=== PATIENT | female | born 1985 | race American Indian/Alaskan Native ===

== ENCOUNTER 2020-05-21 05:55 | Outpatient (CLI) | payer OTHER ==
[2020-05-21 06:14] VITALS: BP 138/82
== END 2020-05-21 07:10 | disposition home or self-care (01) ==
LOC: TRG 05:55 → APU 06:04 → TRG 07:10
PROVIDERS: ATTEND Obstetrics & Gynecology
DX: O62.4 Hypertonic, incoordinate, and prolonged uterine contractions (principal); Z3A.39 39 weeks gestation of pregnancy
CPT/HCPCS: 59025; Q0177

== ENCOUNTER 2020-05-21 21:10 | Outpatient (CLI) | payer OTHER ==
[2020-05-21 21:57] VITALS: BP 129/75
== END 2020-05-22 00:55 | disposition home or self-care (01) ==
LOC: TRG 21:10 → APU 21:13 → TRG 05-22 00:55
PROVIDERS: ATTEND Obstetrics & Gynecology
DX: O62.4 Hypertonic, incoordinate, and prolonged uterine contractions (principal); Z3A.39 39 weeks gestation of pregnancy
CPT/HCPCS: 59025; Q0177

== ENCOUNTER 2020-05-22 11:18 | Inpatient (IN) | payer OTHER ==
[2020-05-22] MEDS ORDERED: LACTATED RINGERS 1,000 ML ONE (11:46)
[2020-05-22] MEDS ORDERED: AMPICILLIN/NS 2 GM/100 ML 2 GM/100 ML BAG IV ONE ×2 (11:47→11:51)
[2020-05-22] MEDS ORDERED: LIDOCAINE (2%) 20 MG/1 ML VIAL 20 ML MDV INFILTRATI ONE ×2 (11:50→13:00)
[2020-05-22] MEDS ORDERED: MINERAL OIL 30 ML ORAL LIQD PO PRN ×2 (11:50→11:51)
[2020-05-22] MEDS ORDERED: ACETAMINOPHEN 325 MG TAB PO PRN (11:50)
[2020-05-22] MEDS ORDERED: BUTORPHANOL 2 MG/1 ML INJ IV PRN ×2 (11:50)
[2020-05-22] MEDS ORDERED: TERBUTALINE 1 MG/1 ML INJ SUB-Q PRN ×2 (11:50→11:51)
[2020-05-22] MEDS ORDERED: ePHEDrine SULFATE 50 MG/1 ML INJ IV PRN ×2 (11:50→11:51)
[2020-05-22] MEDS ORDERED: ONDANSETRON 4 MG/2 ML INJ IV PRN ×2 (11:50→13:59)
[2020-05-22] MEDS ORDERED: NalbUPHINE 10 MG/1 ML INJ IV PRN (11:50)
[2020-05-22] MEDS ORDERED: OXYTOCIN DRIP 30 UNITS/500 ML BAG IV SCH ×4 (12:00)
[2020-05-22] MEDS ORDERED: LACTATED RINGERS 1,000 ML IV SCH ×2 (12:00)
[2020-05-22] MEDS ORDERED: fentaNYL 100 MCG/2 ML INJ IV ONE (12:10)
[2020-05-22] MEDS ORDERED: fentaNYL 100 MCG/2 ML INJ ONE (12:11)
[2020-05-22 12:17] LABS: Hematocrit 38.9 % (30.3-42.9); Hemoglobin 13.2 gm/dl (10.1-14.3); Mean Corpuscular HGB Conc 34 % (30-34); Mean Corpuscular Volume 93 fl (79-97); Platelet Count 154 K/mm3 (140-440); Red Blood Count 4.18 M/mm3 (3.65-5.03); Red Cell Distribution Width 14.8 % (13.2-15.2)
--- NOTE | 2020-05-22 13:58 | History and Physical Report ---
History of Present Illness Date of examination: 05/22/20 Date of admission: 05/22/20 11:58 Chief complaint: Active labor History of present illness: 34-year-old G1, P0 at 39+3 who presents in active labor with advanced cervical dilatation. The patient denies leakage of fluid but she reports having bloody show. Cervical exam at presentation was 6 cm. Her course is complicated by history of hepatitis B and advanced maternal age Past History Past Medical History: other (Hepatitis B) Past Surgical History: no surgical history Social history: - Obstetrical History Expected Date of Delivery: 05/26/20 Actual Gestation: 39 Week(s) 3 Day(s) : 1 Para: 0 Hx # Term Pregnancies: 0 Number of Pregnancies: 0 Spontaneous Abortions: 0 Induced : 0 Number of Living Children: 0 Medications and Allergies Allergies Allergy/AdvReac Type Severity Reaction Status Date / Time No Known Allergies Allergy Verified 05/21/20 06:55 Active Meds: Active Medications Acetaminophen (Acetaminophen 325 Mg Tab) 650 mg PO Q4H PRN PRN Reason: Pain, Mild (1-3) Butorphanol Tartrate (Butorphanol 2 Mg/1 Ml Inj) 2 mg IV Q2H PRN PRN Reason: Pain , Severe (7-10) Ephedrine Sulfate (Ephedrine Sulfate 50 Mg/1 Ml Inj) 10 mg IV Q2M PRN PRN Reason: Hypotension Lactated Ringer's (Lactated Ringers) 1,000 mls @ 125 mls/hr IV DIRECT DAVID Ampicillin Sodium (Ampicillin/Ns 1 Gm/50 Ml) 1 gm in 50 mls @ 100 mls/hr IV Q4H DAVID; Protocol Oxytocin/Sodium Chloride (Pitocin/Ns 30 Unit/500ml) 30 units in 500 mls @ 2 mls/hr IV TITR DAVID; Protocol Oxytocin/Sodium Chloride (Pitocin/Ns 30 Unit/500ml) 30 units in 500 mls @ 40 mls/hr IV TITR DAVID; Protocol Mineral Oil (Mineral Oil 30 Ml Oral Liqd) 30 ml PO QHS PRN PRN Reason: Constipation Nalbuphine HCl (Nalbuphine 10 Mg/1 Ml Inj) 10 mg IV Q2H PRN PRN Reason: Pain, Moderate (4-6) Ondansetron HCl (Ondansetron 4 Mg/2 Ml Inj) 4 mg IV Q8H PRN PRN Reason: Nausea And Vomiting Terbutaline Sulfate (Terbutaline 1 Mg/1 Ml Inj) 0.25 mg SUB-Q ONCE PRN PRN Reason: Hyperstimulation/Hypertonicity Review of Systems All systems: negative Genitourinary: contractions, no leakage of fluid - Vital Signs Vital signs: Vital Signs Pulse BP 103 H 147/72 05/22/20 12:06 05/22/20 12:06 Temp Pulse Resp BP Pulse Ox 101 H 131/60 99 05/22/20 13:56 05/22/20 13:56 05/22/20 13:54 - Physical Exam Breasts: Positive: deferred Cardiovascular: Regular rate Lungs: Positive: Clear to auscultation Abdomen: Positive: normal appearance Results Result Diagrams: 05/22/20 11:39 All other labs normal. Assessment and Plan - Patient Problems (1) Active labor at term Current Visit: Yes Status: Acute Plan to address problem: Admit to labor and delivery
[2020-05-22] MEDS ORDERED: HYDROcodone/ACETAMINOPHEN 5-325 MG TAB PO PRN (13:59)
[2020-05-22] MEDS ORDERED: PROMETHAZINE 25 MG TAB PO PRN (13:59)
[2020-05-22] MEDS ORDERED: MAGNESIUM HYDROXIDE (MOM) ORAL LIQD UDC PO PRN (13:59)
[2020-05-22] MEDS ORDERED: diphenhydrAMINE 25 MG CAP PO PRN (13:59)
[2020-05-22] MEDS ORDERED: PROMETHAZINE 25 MG RECT SUPP PR PRN (13:59)
[2020-05-22] MEDS ORDERED: LANOLIN/ZINC/DIMETHICONE (LANSINOH) 7 GM TP PRN (13:59)
[2020-05-22] MEDS ORDERED: WITCH HAZEL/ GLYCERIN PAD TP PRN (13:59)
--- NOTE | 2020-05-22 14:01 | Procedure Note ---
OB Delivery Note - Delivery Date of Delivery: 05/22/20 Surgeon: VENANCIO REYNA Estimated blood loss: 100cc - Vaginal Delivery presentation: vertex Delivery position: OA Intrapartum events: meconium Delivery augmentation: rupture of membranes Delivery monitor: external FHT, external uterine Route of delivery: Delivery placenta: spontaneous Delivery cord: 3 umbilical vessels Episiotomy: none Delivery laceration: none Anesthesia: intravenous - Infant A at 1 minute: 8 at 5 minutes: 9 Gender: Male (Weight 6 pounds 14 ounces)
[2020-05-22] MEDS ORDERED: AMPICILLIN/NS 1 GM/50 ML 1 GM/50 ML BAG IV SCH (16:00)
[2020-05-22] MEDS: IBUPROFEN 600 MG TAB PO SCH (18:37)
[2020-05-23] MEDS: IBUPROFEN 600 MG TAB PO SCH ×5 (00:16→23:51)
[2020-05-23 03:26] LABS: Hematocrit 36.1 % (30.3-42.9); Hemoglobin 12.5 gm/dl (10.1-14.3)
[2020-05-23] MEDS ORDERED: DIPHtheria,PERTUSSIS(ACELL),TETANUS VACCINE/PF 0.5 ML VIAL IM ONE (06:00)
--- NOTE | 2020-05-23 08:31 | Progress Note ---
Assessment and Plan A: PPD#1 s/p at term Obesity Hepatitis B P: Routine care Subjective - Subjective Date of service: 05/23/20 Principal diagnosis: s/p at term Interval history: Pt reports fatigue but otherwise feels well. She is concerned about the baby's urine output as she reports she has not changed a diaper in the last several hours. Patient reports: appetite normal, voiding normally, ambulating normally : doing well (though concerned about feeding ) Objective - Vital Signs Latest vital signs: Vital Signs Temp Pulse Resp BP Pulse Ox 05/23/20 04:26 98.2 F 97 H 20 94/56 97 05/22/20 23:23 98.2 F 85 20 92/60 97 05/22/20 19:57 98.2 F 102 H 20 107/60 99 05/22/20 17:25 98.5 F 89 20 128/70 99 05/22/20 16:55 86 126/63 05/22/20 16:43 82 120/61 05/22/20 16:14 83 99 05/22/20 16:13 98.2 F 05/22/20 16:09 85 100 05/22/20 16:04 86 99 05/22/20 15:59 87 99 05/22/20 15:54 87 100 05/22/20 15:49 96 H 99 05/22/20 15:44 95 H 100 05/22/20 15:39 100 H 99 05/22/20 15:34 84 99 05/22/20 15:29 92 H 98 05/22/20 15:25 84 135/68 05/22/20 15:24 82 98 05/22/20 15:19 82 99 05/22/20 15:14 84 98 05/22/20 15:10 89 133/71 05/22/20 15:09 86 98 05/22/20 15:04 87 100 05/22/20 14:59 86 99 05/22/20 14:55 93 H 132/73 05/22/20 14:54 87 99 05/22/20 14:49 89 98 05/22/20 14:44 90 99 05/22/20 14:41 97.8 F 85 20 125/69 99 05/22/20 14:39 90 100 05/22/20 14:34 95 H 99 05/22/20 14:29 94 H 100 05/22/20 14:24 95 H 100 05/22/20 14:21 92 H 127/62 05/22/20 14:19 92 H 100 05/22/20 14:16 89 126/60 05/22/20 14:14 92 H 100 05/22/20 14:11 102 H 123/59 05/22/20 14:09 95 H 100 05/22/20 14:06 95 H 122/58 05/22/20 14:04 95 H 99 05/22/20 14:01 96 H 129/61 05/22/20 13:59 96 H 99 05/22/20 13:56 101 H 131/60 05/22/20 13:54 100 H 99 05/22/20 13:50 101 H 125/59 05/22/20 13:49 102 H 99 05/22/20 13:48 108 H 144/64 05/22/20 13:44 121 H 97 05/22/20 13:39 99 H 99 05/22/20 13:34 113 H 99 05/22/20 13:29 105 H 99 05/22/20 13:24 108 H 99 05/22/20 13:19 109 H 99 05/22/20 13:18 101 H 126/61 05/22/20 13:14 103 H 99 05/22/20 13:09 96 H 99 05/22/20 13:04 94 H 99 05/22/20 12:59 99 H 98 05/22/20 12:54 98 H 99 05/22/20 12:49 100 H 98 05/22/20 12:47 100 H 126/60 05/22/20 12:44 89 99 05/22/20 12:39 110 H 99 05/22/20 12:37 95 H 123/71 05/22/20 12:34 93 H 98 05/22/20 12:29 93 H 99 05/22/20 12:24 92 H 98 05/22/20 12:19 92 H 99 05/22/20 12:14 92 H 99 05/22/20 12:09 98 H 98 05/22/20 12:06 103 H 147/72 Intake and Output 05/22/20 05/23/20 05/23/20 22:59 06:59 14:59 Intake Total 240 Output Total 300 600 Balance -300 -360 Intake: Oral 240 Output: Urine 300 600 Void 300 600 Other: Total, Intake Amount 240 Total, Output Amount 300 600 # Voids Void 1 2 - Exam Breasts: Present: deferred Abdomen: Present: soft Uterus: Present: fundal height at umbilicus Extremities: Present: normal
[2020-05-24] MEDS: IBUPROFEN 600 MG TAB PO SCH ×2 (08:09→12:16)
--- NOTE | 2020-05-24 08:18 | Progress Note ---
Assessment and Plan A: PPD#2 s/p at term. M.O. CHTN, vital signs stable. Pre-gestational DM P: Continue with routine care. Anticipate discharge this afternoon. Subjective - Subjective Date of service: 05/24/20 Principal diagnosis: s/p at term Interval history: PPD#2 s/p at term. Feeling well with no complaints. Patient reports: appetite normal, voiding normally, pain well controlled, ambulating normally Benedict: doing well Objective - Vital Signs Latest vital signs: Vital Signs Temp Pulse Resp BP BP Pulse Ox 05/24/20 08:09 18 05/24/20 00:51 18 05/24/20 00:00 98.6 F 66 18 114/78 05/23/20 23:51 18 05/23/20 16:08 98.8 F 101 H 20 102/62 97 05/23/20 12:33 98.5 F 98 H 16 113/69 98 Intake and Output 05/23/20 05/24/20 05/24/20 23:59 07:59 15:59 Intake Total 420 600 Balance 420 600 Intake: Oral 120 Intake, Free Water 300 600 Other: Total, Intake Amount 120 # Voids Void 1 1 - Exam Breasts: Present: deferred Uterus: Present: normal, firm, fundal height below umbilicus
--- NOTE | 2020-05-24 08:22 | Discharge Summary ---
Providers - Providers Date of Admission: 05/22/20 11:58 Date of discharge: 05/24/20 Attending physician: VENANCIO REYNA Primary care physician: VENANCIO REYNA Hospitalization Reason for admission: active labor, IUP at term Delivery: Episiotomy: none Laceration: none Other procedures: none complications: none Discharge diagnosis: IUP at term delivered [place] baby: male Condition at discharge: Good Disposition: DC-01 TO HOME OR SELFCARE Plan - Discharge Medications Prescriptions: Ibuprofen [Motrin] 800 mg PO Q8HR PRN #30 tablet PRN Reason: Pain, Moderate (4-6) Vit-Fe Fumar-FA [ Vitamin] 1 tab PO QDAY #30 tablet - Provider Discharge Summary Additional instructions: [] Smoking cessation referral if applicable(refer to patient education folder for contact #) [] Refer to [facility]'s [facility] Booklet Call your doctor immediately for: * Fever > 100.5 * Heavy vaginal bleeding ( >1 pad per hour) * Severe persistent headache * Shortness of breath * Reddened, hot, painful area to leg or breast * Drainage or odor from incision. * Keep incision clean and dry at all times and follow doctor's instructions regarding bathing/showering - Follow up plan Follow up: VENANCIO REYNA MD [Primary Care Provider] - 7 Days
--- NOTE | 2020-05-24 08:24 | Discharge Summary ---
Providers - Providers Date of Admission: 05/22/20 11:58 Attending physician: VENANCIO REYNA Primary care physician: VENANCIO REYNA Hospitalization Condition at discharge: Good Disposition: DC-01 TO HOME OR SELFCARE Plan - Discharge Medications Prescriptions: Ibuprofen [Motrin] 800 mg PO Q8HR PRN #30 tablet PRN Reason: Pain, Moderate (4-6) Vit-Fe Fumar-FA [ Vitamin] 1 tab PO QDAY #30 tablet - Provider Discharge Summary Activity: no sex for 6 weeks, no heavy lifting 4 weeks, no strenuous exercise Diet: routine Instructions: routine Additional instructions: [] Smoking cessation referral if applicable(refer to patient education folder for contact #) [] Refer to [facility]'s [facility] Booklet Call your doctor immediately for: * Fever > 100.5 * Heavy vaginal bleeding ( >1 pad per hour) * Severe persistent headache * Shortness of breath * Reddened, hot, painful area to leg or breast * Drainage or odor from incision. * Keep incision clean and dry at all times and follow doctor's instructions regarding bathing/showering - Follow up plan Follow up: VENANCIO REYNA MD [Primary Care Provider] - 7 Days
[2020-05-24 14:03] VITALS: BP 119/62
== END 2020-05-24 15:00 | disposition home or self-care (01) | DRG 805 ==
LOC: TRG 11:18 → APU 11:20 → LD 11:23 → TRG 11:57 → LD 11:58 → OB 17:15
PROVIDERS: ADMIT Obstetrics & Gynecology; ATTEND Obstetrics & Gynecology
PROC: 10E0XZZ Delivery of Products of Conception, External Approach (ICD-10-PCS; principal; 2020-05-22)
PROC: 3E0234Z Introduction of Serum, Toxoid and Vaccine into Muscle, Percutaneous Approach (ICD-10-PCS; 2020-05-23)
DX: O77.0 Labor and delivery complicated by meconium in amniotic fluid (principal); O24.32 Unspecified pre-existing diabetes mellitus in childbirth; Z37.0 Single live birth; O98.42 Viral hepatitis complicating childbirth; B19.10 Unspecified viral hepatitis B without hepatic coma; O10.92 Unspecified pre-existing hypertension complicating childbirth; O99.214 Obesity complicating childbirth; E11.8 Type 2 diabetes mellitus with unspecified complications; Z3A.39 39 weeks gestation of pregnancy
CPT/HCPCS: 36415; 85014; 85018; 85027; 86592; 86850; 86900; 86901; 90471; 90715; G0378; A6250; J0290; J2590; J3010; J7120; U0003

== ENCOUNTER 2020-06-01 14:50 | Inpatient (IN) | payer OTHER ==
[2020-06-01 15:30] LABS: Basophils % (Auto) 0.6 % (0.0-1.8); Eosinophils # (Auto) 0.1 K/mm3 (0.0-0.4); Eosinophils % (Auto) 1.1 % (0.0-4.3); Hematocrit 39.5 % (30.3-42.9); Hemoglobin 13.3 gm/dl (10.1-14.3); Lymphocytes # (Auto) 1.4 K/mm3 (1.2-5.4); Lymphocytes % (Auto) 19.2 % (13.4-35.0); Mean Corpuscular HGB Conc 34 % (30-34); Mean Corpuscular Volume 93 fl (79-97); Monocytes # (Auto) 0.5 K/mm3 (0.0-0.8); Monocytes % (Auto) 6.7 % (0.0-7.3); Platelet Count 199 K/mm3 (140-440); Red Blood Count 4.26 M/mm3 (3.65-5.03); Red Cell Distribution Width 14.9 % (13.2-15.2)
[2020-06-01] MEDS ORDERED: FUROSEMIDE 20 MG/2 ML INJ IV ONE (15:35)
--- NOTE | 2020-06-01 15:36 | Emergency Department Report ---
ED General Adult HPI - General Chief complaint: High BP Stated complaint: HYPERTENSIVE Time Seen by Provider: 06/01/20 15:34 Source: patient Mode of arrival: Ambulatory Limitations: No Limitations - History of Present Illness Initial comments: Patient is a 34-year-old, 1 week female who presents emergency department for evaluation of hypertension noted at home. Patient states her checked her blood pressure and found it to be 157/100 after patient complained of palpitations throughout the day today. Additionally, patient had swelling to both legs since delivery of her child. Patient denies chest pain, denies shortness of breath, denies fever. Severity scale (0 -10): 0 - Related Data Previous Rx's Medication Instructions Recorded Last Taken Type Ibuprofen [Motrin] 800 mg PO Q8HR PRN #30 tablet 05/24/20 Unknown Rx Vit-Fe Fumar-FA [ 1 tab PO QDAY #30 tablet 05/24/20 Unknown Rx Vitamin] Allergies Allergy/AdvReac Type Severity Reaction Status Date / Time No Known Allergies Allergy Verified 05/21/20 06:55 ED Review of Systems ROS: Stated complaint: HYPERTENSIVE Other details as noted in HPI Constitutional: denies: chills, fever Eyes: denies: eye pain, eye discharge, vision change ENT: denies: ear pain, throat pain Respiratory: denies: cough, shortness of breath, wheezing Cardiovascular: dyspnea on exertion. denies: chest pain, palpitations Endocrine: no symptoms reported Gastrointestinal: denies: abdominal pain, nausea, diarrhea Genitourinary: denies: urgency, dysuria, discharge Musculoskeletal: denies: back pain, joint swelling, arthralgia Skin: denies: rash, lesions Neurological: denies: headache, weakness, paresthesias Psychiatric: denies: anxiety, depression Hematological/Lymphatic: denies: easy bleeding, easy bruising ED Past Medical Hx - Past Medical History Previous Medical History?: No Hx Hypertension: No Hx Congestive Heart Failure: No Hx Diabetes: No Hx Deep Vein Thrombosis: No Hx Renal Disease: No Hx Sickle Cell Disease: No Hx Seizures: No Hx Asthma: No Hx COPD: No Hx HIV: No - Surgical History Past Surgical History?: No - Social History Smoking Status: Never Smoker - Medications Home Medications: Home Medications Medication Instructions Recorded Confirmed Last Taken Type Ibuprofen [Motrin] 800 mg PO Q8HR PRN #30 tablet 05/24/20 Unknown Rx Vit-Fe Dawood-FA [ 1 tab PO QDAY #30 tablet 05/24/20 Unknown Rx Vitamin] ED Physical Exam - General Limitations: No Limitations General appearance: alert, in no apparent distress - Head Head exam: Present: atraumatic, normocephalic - Eye Eye exam: Present: normal appearance - ENT ENT exam: Present: mucous membranes moist - Neck Neck exam: Present: normal inspection - Respiratory Respiratory exam: Present: respiratory distress, rales - Cardiovascular Cardiovascular Exam: Present: regular rate, normal rhythm. Absent: systolic murmur, diastolic murmur, rubs, gallop - GI/Abdominal GI/Abdominal exam: Present: soft, normal bowel sounds - Extremities Exam Extremities exam: Present: normal inspection, pedal edema - Back Exam Back exam: Present: normal inspection - Neurological Exam Neurological exam: Present: alert, oriented X3 - Psychiatric Psychiatric exam: Present: normal affect, normal mood - Skin Skin exam: Present: warm, dry, intact, normal color. Absent: rash ED Course Vital Signs 06/01/20 06/01/20 06/01/20 15:01 15:41 18:01 Temperature 98.2 F Pulse Rate 94 H Respiratory 19 18 Rate Blood Pressure 174/103 162/90 [Right] O2 Sat by Pulse 100 100 Oximetry - Reevaluation(s) Reevaluation #1: 06/01/20 15:36 Patient initially treated with furosemide 20 mg IV x1 Reevaluation #2: Despite significant diuresis, patient remains tachypneic with accessory muscle use, admitted. 06/01/20 18:36 ED Medical Decision Making - Lab Data Result diagrams: 06/01/20 15:04 06/01/20 15:04 Labs 06/01/20 06/01/20 06/01/20 15:04 15:04 15:26 WBC 7.0 RBC 4.26 Hgb 13.3 Hct 39.5 MCV 93 MCH 31 MCHC 34 RDW 14.9 Plt Count 199 Lymph % (Auto) 19.2 Whitley % (Auto) 6.7 Eos % (Auto) 1.1 Baso % (Auto) 0.6 Lymph # (Auto) 1.4 Whitley # (Auto) 0.5 Eos # (Auto) 0.1 Baso # (Auto) 0.0 Seg Neutrophils % 72.4 H Seg Neutrophils # 5.1 Sodium 141 Potassium 3.9 Chloride 110.3 H Carbon Dioxide 20 L Anion Gap 15 BUN 12 Creatinine 0.8 Estimated GFR > 60 BUN/Creatinine Ratio 15 Glucose 94 Calcium 8.8 Magnesium 1.90 Total Bilirubin 0.80 AST 74 H ALT 136 H Alkaline Phosphatase 87 NT-Pro-B Natriuret Pep 2630 H Total Protein 6.2 L Albumin 3.7 L Albumin/Globulin Ratio 1.5 Urine Color Straw Urine Turbidity Clear Urine pH 6.0 Ur Specific [place] 1.002 L Urine Protein <15 mg/dl Urine Glucose (UA) Neg Urine Ketones Neg Urine Blood Sm Urine Nitrite Neg Urine Bilirubin Neg Urine Urobilinogen < 2.0 Ur Leukocyte Esterase Tr Urine WBC (Auto) < 1.0 Urine RBC (Auto) < 1.0 U Epithel Cells (Auto) 1.0 Urine Mucus Few Vital Signs 06/01/20 06/01/20 06/01/20 15:01 15:41 18:01 Temperature 98.2 F Pulse Rate 94 H Respiratory 19 18 Rate Blood Pressure 174/103 162/90 [Right] O2 Sat by Pulse 100 100 Oximetry Critical care attestation.: If time is entered above; I have spent that time in minutes in the direct care of this critically ill patient, excluding procedure time. ED Disposition Clinical Impression: Pre-eclampsia, , New onset of congestive heart failure Disposition: OP ADMIT IP TO THIS HOSP Is pt being admited?: Yes Condition: Stable Instructions: Hypertension (ED) Referrals: PRIMARY CARE, [Primary Care Provider] - 3-5 Days
[2020-06-01 15:53] LABS: Bilirubin,Urine NEG (Negative); Blood,Urine SM (Negative); Color,Urine Straw (Yellow); Mucus,Urine FEW /HPF; Protein,Urine <15 mg/dL mg/dL (Negative); RBC,Urine < 1.0 /HPF (0.0-6.0); Urobilinogen,Urine < 2.0 mg/dL (<2.0); WBC,Urine < 1.0 /HPF (0.0-6.0)
[2020-06-01 15:56] LABS: Alanine Aminotransferase 136 units/L (7-56); Albumin 3.7 g/dL (3.9-5); BUN/Creatinine Ratio 15; Blood Urea Nitrogen 12 mg/dL (7-17); Calcium 8.8 mg/dL (8.4-10.2); Hemolysis Index 8
--- NOTE | 2020-06-01 16:57 | XRay Report ---
CHEST 1 VIEW 06/01/2020 4:50 PM INDICATION / CLINICAL INFORMATION: dyspnea. COMPARISON: None available. FINDINGS: SUPPORT DEVICES: None. HEART / MEDIASTINUM: No significant abnormality. LUNGS / PLEURA: There are patchy bilateral pulmonary opacities as well as bibasilar opacities that co uld reflect small pleural effusions versus consolidation. No pneumothorax. ADDITIONAL FINDINGS: No significant additional findings. IMPRESSION: 1. Patchy bilateral pulmonary opacities as well as bibasilar opacities that could reflect small effus ions versus additional areas of consolidation. Signer Name: Adrian Marin MD Signed: 06/01/2020 4:53 PM Workstation Name: [id number]
[2020-06-01] MEDS ORDERED: MAGNESIUM HYDROXIDE (MOM) ORAL LIQD UDC PO PRN (19:36)
[2020-06-01] MEDS ORDERED: MORPHINE 2 MG/1 ML INJ IV PRN ×2 (19:36)
[2020-06-01] MEDS ORDERED: ONDANSETRON 4 MG/2 ML INJ IV PRN (19:36)
--- NOTE | 2020-06-01 19:47 | History and Physical Report ---
History of Present Illness Date of examination: 06/01/20 Date of admission: 06/01/2020 Chief complaint: Elevated blood pressure Lower extremity swelling Shortness of breath History of present illness: 34-year-old -Martiniquais female presenting to the emergency room today for evaluation of elevated blood pressure. Patient is 1 week . She indicates her blood pressure was about 157/100 at home and she has been having some palpitations lately. She has also noticed that her lower extremities have been swelling significantly after delivery. She denies any chest pain but she has been having occasional shortness of breath headache. She denies any fever or chills, no nausea vomiting, no abdominal pain, no hematuria or dysuria. Upon arrival in the emergency room she was in mild respiratory distress. Blood pressure was elevated with systolic in the 170s and diastolic in the low 100s. Work-up in the emergency room today shows elevated BNP, chest x-ray was significant for bilateral pleural effusion. Patient is being admitted with new onset CHF with possible cardiomyopathy and uncontrolled hypertension. Past History Past Medical History: No medical history, other (1 week ) Past Surgical History: No surgical history Social history: no significant social history Family history: no significant family history Medications and Allergies Allergies Allergy/AdvReac Type Severity Reaction Status Date / Time No Known Allergies Allergy Verified 05/21/20 06:55 Home Medications Medication Instructions Recorded Confirmed Last Taken Type Ibuprofen [Motrin] 800 mg PO Q8HR PRN #30 tablet 05/24/20 Unknown Rx Vit-Fe Fumar-FA [ 1 tab PO QDAY #30 tablet 05/24/20 Unknown Rx Vitamin] Review of Systems Constitutional: no fever, no chills Ears, nose, mouth and throat: no nasal congestion, no sore throat Cardiovascular: palpitations, edema, high blood pressure, leg edema, no chest pain Respiratory: shortness of breath, no cough Gastrointestinal: no abdominal pain, no nausea, no vomiting, no diarrhea Genitourinary Female: no flank pain, no dysuria, no hematuria Musculoskeletal: no neck pain, no low back pain Integumentary: no rash, no pruritis Neurological: headaches, no confusion Psychiatric: no anxiety, no depression Exam - Constitutional Vitals: Temp Pulse Resp BP Pulse Ox 98.2 F 94 H 18 162/90 100 06/01/20 15:01 06/01/20 15:01 06/01/20 15:41 06/01/20 18:01 06/01/20 15:41 General appearance: Present: no acute distress, well-nourished, obese - EENT Eyes: Present: PERRL, EOM intact. Absent: scleral icterus ENT: hearing intact, clear oral mucosa, dentition normal - Neck Neck: Present: supple, normal ROM - Respiratory Respiratory effort: normal Respiratory: bilateral: rales - Cardiovascular Rhythm: regular Heart Sounds: Present: S1 & S2. Absent: gallop, systolic murmur, diastolic murmur, rub - Extremities Extremities: no ischemia, pulses intact, pulses symmetrical, normal temperature, normal color, Full ROM Extremity abnormal: edema (2+ bilateral lower extremity edema) Peripheral Pulses: within normal limits - Abdominal General gastrointestinal: Present: soft, non-tender, non-distended, normal bowel sounds. Absent: mass - Integumentary Integumentary: Present: clear, warm, dry. Absent: rash - Musculoskeletal Musculoskeletal: strength equal bilaterally - Psychiatric Psychiatric: appropriate mood/affect, intact judgment & insight, memory intact, cooperative - Neurologic Neurologic: CNII-XII intact, no focal deficits, moves all extremities Results - Labs CBC & Chem 7: 06/01/20 15:04 06/01/20 15:04 Labs: Abnormal lab results 06/01/20 06/01/20 06/01/20 Range/Units 15:04 15:04 15:26 Seg Neutrophils % 72.4 H (40.0-70.0) % Chloride 110.3 H (98-107) mmol/L Carbon Dioxide 20 L (22-30) mmol/L AST 74 H (5-40) units/L ALT 136 H (7-56) units/L NT-Pro-B Natriuret Pep 2630 H (0-450) pg/mL Total Protein 6.2 L (6.3-8.2) g/dL Albumin 3.7 L (3.9-5) g/dL Ur Specific [place] 1.002 L (1.003-1.030) Assessment and Plan - Patient Problems (1) New onset of congestive heart failure Current Visit: Yes Status: Acute Plan to address problem: Patient placed on diuretics. Will monitor inputs and output and also monitor daily weight. This may be secondary to cardiomyopathy. We will schedule patient for echocardiogram. We also place a consult to cardiology for further evaluation and recommendation. (2) Pre-eclampsia, Current Visit: Yes Status: Acute Plan to address problem: Patient will be closely monitored. We will also place consult to [facility] for evaluation and recommendation. (3) DVT prophylaxis Current Visit: Yes Status: Acute Plan to address problem: Patient placed on subcutaneous (4) Full code status Current Visit: Yes Status: Acute Plan to address problem: Patient is a full code.
[2020-06-01] MEDS: ENOXAPARIN 40 MG/0.4 ML INJ SUB-Q SCH (22:05)
[2020-06-01] MEDS: ACETAMINOPHEN 325 MG TAB PO PRN (22:11)
[2020-06-01] MEDS ORDERED: METOPROLOL TARTRATE 5 MG/5 ML INJ IV ONE (22:45)
[2020-06-02] MEDS: FUROSEMIDE 40 MG/4 ML INJ IV SCH ×2 (05:32→17:38)
[2020-06-02 06:27] LABS: Basophils % (Auto) 0.8 % (0.0-1.8); Eosinophils # (Auto) 0.1 K/mm3 (0.0-0.4); Eosinophils % (Auto) 2.2 % (0.0-4.3); Hematocrit 39.6 % (30.3-42.9); Hemoglobin 13.2 gm/dl (10.1-14.3); Lymphocytes # (Auto) 1.2 K/mm3 (1.2-5.4); Lymphocytes % (Auto) 19.8 % (13.4-35.0); Mean Corpuscular HGB Conc 33 % (30-34); Mean Corpuscular Volume 93 fl (79-97); Monocytes # (Auto) 0.5 K/mm3 (0.0-0.8); Platelet Count 214 K/mm3 (140-440); Red Blood Count 4.28 M/mm3 (3.65-5.03); Red Cell Distribution Width 15.3 % (13.2-15.2)
[2020-06-02 06:35] LABS: INR 1.07 (0.87-1.13)
[2020-06-02 06:40] LABS: BUN/Creatinine Ratio 13; Blood Urea Nitrogen 12 mg/dL (7-17); Calcium 8.1 mg/dL (8.4-10.2); Hemolysis Index 3
--- NOTE | 2020-06-02 08:42 | Consultation ---
History of Present Illness Consult date: 06/02/20 Requesting physician: DENISE HUYNH Reason for consult: other ( PreEclampsia ) History of present illness: Pt is a 34 year old female PPD#11 s/p on 05/22/20 who presents with hypertension, bilateral lower extremity edema and preeclampsia, and dyspnea found to have bilateral pleural effusions. [facility] has been consulted for preeclampsia. The patient had care at [facility] complicated by obesity, h/o hepatitis B and advanced maternal age. 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 Social history: no significant social history, - Obstetrical History : 1 Para: 1 Hx # Term Pregnancies: 1 Number of Pregnancies: 0 Spontaneous Abortions: 0 Induced : 0 Number of Living Children: 1 Medications and Allergies Allergies Allergy/AdvReac Type Severity Reaction Status Date / Time No Known Allergies Allergy Verified 05/21/20 06:55 Home Medications Medication Instructions Recorded Confirmed Last Taken Type Ibuprofen [Motrin] 800 mg PO Q8HR PRN #30 tablet 05/24/20 Unknown Rx Vit-Fe Fumar-FA [ 1 tab PO QDAY #30 tablet 05/24/20 Unknown Rx Vitamin] Active Meds: Active Medications Acetaminophen (Acetaminophen 325 Mg Tab) 650 mg PO Q4H PRN PRN Reason: Pain MILD(1-3)/Fever >100.5/GOMEZ Last Admin: 06/01/20 22:11 Dose: 650 mg Documented by: Enoxaparin Sodium (Enoxaparin 40 Mg/0.4 Ml Inj) 40 mg SUB-Q QDAY@2200 DAVID; Protocol Last Admin: 06/01/20 22:05 Dose: 40 mg Documented by: Furosemide (Furosemide 40 Mg/4 Ml Inj) 40 mg IV BID@0600,1800 DAVID Last Admin: 06/02/20 05:32 Dose: 40 mg Documented by: Magnesium Hydroxide (Magnesium Hydroxide (Mom) Oral Liqd Udc) 30 ml PO Q4H PRN PRN Reason: Constipation Morphine Sulfate (Morphine 2 Mg/1 Ml Inj) 2 mg IV Q5MIN PRN PRN Reason: Chest Pain unrelieved by NTG Morphine Sulfate (Morphine 2 Mg/1 Ml Inj) 2 mg IV Q4H PRN PRN Reason: Pain, Moderate (4-6) Last Admin: 06/01/20 19:57 Dose: 2 mg Documented by: Ondansetron HCl (Ondansetron 4 Mg/2 Ml Inj) 4 mg IV Q8H PRN PRN Reason: Nausea And Vomiting Last Admin: 06/01/20 19:58 Dose: 4 mg Documented by: Sodium Chloride (Sodium Chloride 0.9% 10 Ml Flush Syringe) 10 ml IV BID DAVID Last Admin: 06/01/20 22:06 Dose: 10 ml Documented by: Sodium Chloride (Sodium Chloride 0.9% 10 Ml Flush Syringe) 10 ml IV PRN PRN PRN Reason: LINE FLUSH Review of Systems All systems: negative Cardiovascular: shortness of breath, leg edema Respiratory: no cough - Vital Signs Vital signs: Vital Signs Temp Pulse Resp BP Pulse Ox 98.2 F 94 H 19 174/103 100 06/01/20 15:01 06/01/20 15:01 06/01/20 15:01 06/01/20 15:01 06/01/20 15:01 Temp Pulse Resp BP Pulse Ox 98.5 F 95 H 20 158/94 97 06/02/20 04:58 06/02/20 05:16 06/02/20 04:58 06/02/20 04:58 06/02/20 04:58 - Physical Exam Breasts: Positive: deferred Abdomen: Positive: soft Extremities: Positive: edema (2+) Results Result Diagrams: 06/02/20 05:40 06/02/20 05:40 Abnormal lab results 06/01/20 06/01/20 06/01/20 Range/Units 15:04 15:04 15:26 RDW (13.2-15.2) % [place] % (Auto) (0.0-7.3) % Seg Neutrophils % 72.4 H (40.0-70.0) % Chloride 110.3 H (98-107) mmol/L Carbon Dioxide 20 L (22-30) mmol/L Calcium (8.4-10.2) mg/dL AST 74 H (5-40) units/L ALT 136 H (7-56) units/L NT-Pro-B Natriuret Pep 2630 H (0-450) pg/mL Total Protein 6.2 L (6.3-8.2) g/dL Albumin 3.7 L (3.9-5) g/dL Ur Specific [place] 1.002 L (1.003-1.030) 06/02/20 06/02/20 Range/Units 05:40 05:40 RDW 15.3 H (13.2-15.2) % [place] % (Auto) 8.0 H (0.0-7.3) % Seg Neutrophils % (40.0-70.0) % Chloride 110.3 H (98-107) mmol/L Carbon Dioxide 21 L (22-30) mmol/L Calcium 8.1 L (8.4-10.2) mg/dL AST (5-40) units/L ALT (7-56) units/L NT-Pro-B Natriuret Pep (0-450) pg/mL Total Protein (6.3-8.2) g/dL Albumin (3.9-5) g/dL Ur Specific [place] (1.003-1.030) All other labs normal. Assessment and Plan A: Preeclampsia Dyspnea and bilateral lower extremity edema concerning for CHF and peripartum cardiomyopathy PPD#11 s/p at term Morbid Obesity Hepatitis B P: Typically patients diagnosed with preeclampsia are treated with magnesium sulfate 4 g loading dose, then 1 g per hour for 24 hours for seizure prophylaxis with magnesium levels q 6 hrs to avoid magnesium toxicity. We will follow along with you, and will await the results of echocardiogram Continue to closely monitor clinical status
--- NOTE | 2020-06-02 10:45 | Consultation ---
History of Present Illness Consult date: 06/02/20 Consult reason: congestive heart failure History of present illness: This is a 34yr old F whom is 1 week who presents to this hospital with shortness of breath and elevated BP noted on home monitor. Patient denies blood pressure complications during her . She denies chest pain and denies palpitations. There is mild lower extremity edema. Chest x-ray reports bilateral patchy opacities and small pleural effusions. Labs shows an elevated BNP of 2630. There is also elevated liver enzymes. Patient was admitted for further evaluation and workup. A cardiac consultation has been requested for CHF evaluation. Past History Past Medical History: No medical history, other (1 week ) Past Surgical History: No surgical history Social history: no significant social history, Family history: no significant family history Medications and Allergies Allergies Allergy/AdvReac Type Severity Reaction Status Date / Time No Known Allergies Allergy Verified 05/21/20 06:55 Home Medications Medication Instructions Recorded Confirmed Last Taken Type Ibuprofen [Motrin] 800 mg PO Q8HR PRN #30 tablet 05/24/20 Unknown Rx Vit-Fe Fumar-FA [ 1 tab PO QDAY #30 tablet 05/24/20 Unknown Rx Vitamin] Active Meds: Active Medications Acetaminophen (Acetaminophen 325 Mg Tab) 650 mg PO Q4H PRN PRN Reason: Pain MILD(1-3)/Fever >100.5/GOMEZ Last Admin: 06/01/20 22:11 Dose: 650 mg Documented by: Enoxaparin Sodium (Enoxaparin 40 Mg/0.4 Ml Inj) 40 mg SUB-Q QDAY@2200 DAVID; Protocol Last Admin: 06/01/20 22:05 Dose: 40 mg Documented by: Furosemide (Furosemide 40 Mg/4 Ml Inj) 40 mg IV BID@0600,1800 DAVID Last Admin: 06/02/20 05:32 Dose: 40 mg Documented by: Magnesium Hydroxide (Magnesium Hydroxide (Mom) Oral Liqd Udc) 30 ml PO Q4H PRN PRN Reason: Constipation Morphine Sulfate (Morphine 2 Mg/1 Ml Inj) 2 mg IV Q5MIN PRN PRN Reason: Chest Pain unrelieved by NTG Morphine Sulfate (Morphine 2 Mg/1 Ml Inj) 2 mg IV Q4H PRN PRN Reason: Pain, Moderate (4-6) Last Admin: 06/01/20 19:57 Dose: 2 mg Documented by: Ondansetron HCl (Ondansetron 4 Mg/2 Ml Inj) 4 mg IV Q8H PRN PRN Reason: Nausea And Vomiting Last Admin: 06/01/20 19:58 Dose: 4 mg Documented by: Sodium Chloride (Sodium Chloride 0.9% 10 Ml Flush Syringe) 10 ml IV BID DAVID Last Admin: 06/01/20 22:06 Dose: 10 ml Documented by: Sodium Chloride (Sodium Chloride 0.9% 10 Ml Flush Syringe) 10 ml IV PRN PRN PRN Reason: LINE FLUSH Review of Systems Cardiovascular: edema, shortness of breath, no chest pain, no palpitations, no rapid/irregular heart beat Physical Examination Vital Signs Temp Pulse Resp BP Pulse Ox 98.2 F 94 H 19 174/103 100 06/01/20 15:01 06/01/20 15:01 06/01/20 15:01 06/01/20 15:01 06/01/20 15:01 General appearance: no acute distress, obese HEENT: Positive: PERRL Neck: Positive: trachea midline Cardiac: Positive: Reg Rate and Rhythm Results 06/02/20 05:40 06/02/20 05:40 Cardiac Enzymes 06/01/20 Range/Units 15:04 AST 74 H (5-40) units/L Coagulation 06/02/20 Range/Units 05:40 PT 13.8 (12.2-14.9) Sec. INR 1.07 (0.87-1.13) CBC 06/01/20 06/02/20 Range/Units 15:04 05:40 WBC 7.0 6.1 (4.5-11.0) K/mm3 RBC 4.26 4.28 (3.65-5.03) M/mm3 Hgb 13.3 13.2 (10.1-14.3) gm/dl Hct 39.5 39.6 (30.3-42.9) % Plt Count 199 214 (140-440) K/mm3 Lymph # (Auto) 1.4 1.2 (1.2-5.4) K/mm3 Mineral # (Auto) 0.5 0.5 (0.0-0.8) K/mm3 Eos # (Auto) 0.1 0.1 (0.0-0.4) K/mm3 Baso # (Auto) 0.0 0.0 (0.0-0.1) K/mm3 Comprehensive Metabolic Panel 06/01/20 06/02/20 Range/Units 15:04 05:40 Sodium 141 142 (137-145) mmol/L Potassium 3.9 3.6 (3.6-5.0) mmol/L Chloride 110.3 H 110.3 H (98-107) mmol/L Carbon Dioxide 20 L 21 L (22-30) mmol/L BUN 12 12 (7-17) mg/dL Creatinine 0.8 0.9 (0.6-1.2) mg/dL Glucose 94 87 (65-100) mg/dL Calcium 8.8 8.1 L (8.4-10.2) mg/dL AST 74 H (5-40) units/L ALT 136 H (7-56) units/L Alkaline Phosphatase 87 (35-129) units/L Total Protein 6.2 L (6.3-8.2) g/dL Albumin 3.7 L (3.9-5) g/dL Assessment and Plan Acute CHF Hypertension Rule out COVID-19 viral pneumonia Echocardiogram will be done for LVEF assessment. Optimal hypertension management. Patient advised she will not be able to breast feed.
[2020-06-02] MEDS: NIFEdipine XL 60 MG TAB PO SCH (13:48)
[2020-06-02] MEDS: POTASSIUM CHLORIDE ER 20 MEQ TAB PO SCH (13:48)
[2020-06-02] MEDS: ACETAMINOPHEN 325 MG TAB PO PRN (17:39)
--- NOTE | 2020-06-02 18:07 | Progress Note ---
Assessment and Plan - Patient Problems (1) Hypertensive emergency Current Visit: Yes Status: Acute Plan to address problem: Patient was discharged on nifedipine 30 mg daily and labetalol 200 every 8 (2) Pre-eclampsia, Current Visit: Yes Status: Acute Plan to address problem: Improved Subjective Date of service: 06/02/20 Principal diagnosis: HTN emergency Interval history: 34-year-old -Stateless female presenting to the emergency room today for evaluation of elevated blood pressure. Patient is 1 week . She indicates her blood pressure was about 157/100 at home and she has been having some palpitations lately. She has also noticed that her lower extremities have been swelling significantly after delivery. She denies any chest pain but she has been having occasional shortness of breath headache. She denies any fever or chills, no nausea vomiting, no abdominal pain, no hematuria or dysuria. Upon arrival in the emergency room she was in mild respiratory distress. Blood pressure was elevated with systolic in the 170s and diastolic in the low 100s. Work-up in the emergency room today shows elevated BNP, chest x-ray was significant for bilateral pleural effusion. Patient is being admitted with new onset CHF with possible cardiomyopathy and uncontrolled hypertension. Day #2 Blood pressure under control Patient to be discharged on Procardia XL 30 mg daily and labetalol 200 mg every 8 hours Patient was assured about breast-feeding Patient had echocardiogram which showed left ventricular systolic function with ejection fraction of 50 to 55% Mild to moderate concentric left ventricular hypertrophy Mild left atrial dilatation Mitral regurgitation mild. Discharge diagnosis clumsier Her uncontrolled hypertension Objective - Constitutional Vitals: Vital Signs - 12hr 06/02/20 06/02/20 06/02/20 09:29 10:00 13:00 Temperature 98.5 F Pulse Rate 92 H 99 H Respiratory 18 18 Rate Blood Pressure 143/83 O2 Sat by Pulse 95 Oximetry 06/02/20 06/02/20 06/02/20 13:24 13:59 15:12 Temperature 99.2 F 97.8 F Pulse Rate 102 H 107 H Respiratory 18 18 Rate Blood Pressure 146/91 151/98 O2 Sat by Pulse 93 96 Oximetry General appearance: Present: no acute distress, well-nourished - EENT Eyes: PERRL, EOM intact ENT: hearing intact, clear oral mucosa Ears: bilateral: normal - Neck Neck: supple, normal ROM - Respiratory Respiratory effort: normal Respiratory: bilateral: CTA - Breasts Breasts: normal - Cardiovascular Heart rate: 78 Rhythm: regular Heart Sounds: Present: S1 & S2. Absent: gallop, rub Extremities: pulses intact, No edema, normal color, Full ROM - Gastrointestinal General gastrointestinal: Present: soft, non-tender, non-distended, normal bowel sounds - Genitourinary Female genitourinary: normal - Integumentary Integumentary: clear, warm, dry - Musculoskeletal Musculoskeletal: 1, strength equal bilaterally - Neurologic Neurologic: moves all extremities - Psychiatric Psychiatric: memory intact, appropriate mood/affect, intact judgment & insight - Labs CBC & Chem 7: 06/02/20 05:40 06/02/20 05:40 Labs: Abnormal lab results 06/02/20 06/02/20 Range/Units 05:40 05:40 RDW 15.3 H (13.2-15.2) % [place] % (Auto) 8.0 H (0.0-7.3) % Chloride 110.3 H (98-107) mmol/L Carbon Dioxide 21 L (22-30) mmol/L Calcium 8.1 L (8.4-10.2) mg/dL
[2020-06-02] MEDS: ENOXAPARIN 40 MG/0.4 ML INJ SUB-Q SCH (22:32)
[2020-06-03] MEDS: FUROSEMIDE 40 MG/4 ML INJ IV SCH (05:41)
--- NOTE | 2020-06-03 10:51 | Progress Note ---
Assessment and Plan Acute CHF with a preserved ejection fraction Echocardiogram showed left ventricular systolic function at the lower limits of normal with ejection fraction 50 to 55%. There was mild dilatation of the right heart chambers, moderate to moderately severe tricuspid regurgitation, and at least mild to moderate pulmonary hypertension. Hypertension 1 week Recommendations: Continue management of fluid overload and hypertension including diuretics and optimal antihypertensive regimen. Patient advised not to breast feed. COVID-19 test result is pending. Subjective Date of service: 06/03/20 Interval history: Patient is resting in bed comfortably and admits she is diuresing well and her breathing is better. Result of COVID 19 test is pending. Objective Vital Signs Temp Pulse Resp BP Pulse Ox 06/03/20 08:10 99.0 F 108 H 18 119/84 91 06/03/20 05:40 116 H 143/80 06/03/20 03:42 99.5 F 116 H 20 143/80 91 06/02/20 23:53 98.7 F 109 H 20 137/76 95 06/02/20 22:32 115 H 137/85 06/02/20 21:00 118 H 06/02/20 20:03 98.6 F 115 H 20 137/85 95 06/02/20 15:12 97.8 F 107 H 18 151/98 96 06/02/20 13:59 99.2 F 06/02/20 13:24 102 H 18 146/91 93 06/02/20 13:00 99 H - Physical Examination General: No Apparent Distress HEENT: Positive: PERRL Cardiac: Positive: Reg Rate and Rhythm Neuro: Positive: Grossly Intact
[2020-06-03] MEDS: NIFEdipine XL 60 MG TAB PO SCH (11:20)
[2020-06-03] MEDS: POTASSIUM CHLORIDE ER 20 MEQ TAB PO SCH (11:20)
--- NOTE | 2020-06-03 13:01 | Progress Note ---
Assessment and Plan - Patient Problems (1) cardiomyopathy Current Visit: Yes Status: Acute Plan to address problem: patient demonstrating clinical improvement anticipate discharge soon Subjective - Subjective Date of service: 06/03/20 Interval history: Patient is ppd #12 s/p and her course is complicated cardiomyopathy. The patient denies any shortness of breath or chest pain today. Echo demonstrating LV function at lower limits of normal, Left ventricular hypertrophy, moderate tricupsid regurg. Currently blood pressure readings have normalized. Patient reports: appetite normal, voiding normally, pain well controlled Objective - Vital Signs Latest vital signs: Vital Signs Temp Pulse Resp BP Pulse Ox 06/03/20 10:00 103 H 06/03/20 08:10 99.0 F 108 H 18 119/84 91 06/03/20 05:40 116 H 143/80 06/03/20 03:42 99.5 F 116 H 20 143/80 91 06/02/20 23:53 98.7 F 109 H 20 137/76 95 06/02/20 22:32 115 H 137/85 06/02/20 21:00 118 H 06/02/20 20:03 98.6 F 115 H 20 137/85 95 06/02/20 15:12 97.8 F 107 H 18 151/98 96 06/02/20 13:59 99.2 F 06/02/20 13:24 102 H 18 146/91 93 Intake and Output 06/02/20 06/03/20 06/03/20 22:59 06:59 14:59 Intake Total 650 Balance 650 Intake: Oral 650 Other: Total, Intake Amount 650 Voiding Method Toilet # Voids Void 4 Weight 116.2 kg
--- NOTE | 2020-06-03 15:08 | XRay Report ---
XR chest 1V ap INDICATION / CLINICAL INFORMATION: pleural effusion. COMPARISON: 06/01/2020 FINDINGS: SUPPORT DEVICES: None. HEART /PULMONARY VASCULATURE: Stable. LUNGS / PLEURA: Improvement in bibasilar pleural-parenchymal opacities. Small bilateral pleural effus ions remain, more pronounced on the right. No pneumothorax. ADDITIONAL FINDINGS: No significant additional findings. IMPRESSION: Improving bibasilar pleural effusions with persistent right basilar airspace opacity, which may refle ct atelectasis, edema, and/or pneumonia. Signer Name: Kieran Laughlin MD Signed: 06/03/2020 3:04 PM Workstation Name: [id number]
--- NOTE | 2020-06-03 17:36 | Discharge Summary ---
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 Patient is 1 week . She indicates her blood pressure was about 157/100 at home and she has been having some palpitations lately. She has also noticed that her lower extremities have been swelling significantly after delivery. She denies any chest pain but she has been having occasional shortness of breath headache. She denies any fever or chills, no nausea vomiting, no abdominal pain, no hematuria or dysuria. Upon arrival in the emergency room she was in mild respiratory distress. Blood pressure was elevated with systolic in the 170s and diastolic in the low 100s. Work-up in the emergency room today shows elevated BNP, chest x-ray was significant for bilateral pleural effusion. Patient is being admitted with new onset CHF with possible cardiomyopathy and uncontrolled hypertension. Day #2 Blood pressure under control Patient to be discharged on Procardia XL 30 mg daily and labetalol 200 mg every 8 hours Patient was assured about breast-feeding Patient had echocardiogram which showed left ventricular systolic function with ejection fraction of 50 to 55% Mild to moderate concentric left ventricular hypertrophy Mild left atrial dilatation Mitral regurgitation mild. Discharge diagnosis clumsier Her uncontrolled hypertension (1) Hypertensive emergency Current Visit: Yes Status: Acute Plan to address problem: Patient was discharged on nifedipine 30 mg daily and labetalol 200 every 8 (2) Pre-eclampsia, Current Visit: Yes Status: Acute Plan to address problem: Improved Disposition: DC-01 TO HOME OR SELFCARE Time spent for discharge: 32 - Discharge Diagnoses (1) Hypertensive emergency Status: Acute (2) Pre-eclampsia, Status: Acute Core Measure Documentation - Palliative Care Palliative Care/ Comfort Measures: Not Applicable - Core Measures Any of the following diagnoses?: none Exam - Constitutional Vitals: Temp Pulse Resp BP Pulse Ox 99.0 F 103 H 18 119/84 91 06/03/20 08:10 06/03/20 10:00 06/03/20 08:10 06/03/20 08:10 06/03/20 08:10 General appearance: Present: no acute distress, well-nourished - EENT Eyes: Present: PERRL ENT: hearing intact, clear oral mucosa - Neck Neck: Present: supple, normal ROM - Respiratory Respiratory effort: normal Respiratory: bilateral: CTA - Cardiovascular Heart rate: 78 Rhythm: regular Heart Sounds: Present: S1 & S2. Absent: rub, click - Extremities Extremities: no ischemia, pulses symmetrical, No edema Peripheral Pulses: within normal limits - Abdominal General gastrointestinal: Present: soft, non-tender, non-distended, normal bowel sounds Female genitourinary: Present: normal - Integumentary Integumentary: Present: clear, warm, dry - Musculoskeletal Musculoskeletal: gait normal, strength equal bilaterally - Psychiatric Psychiatric: appropriate mood/affect, intact judgment & insight - Neurologic Neurologic: CNII-XII intact, moves all extremities - Allied Health Allied health notes reviewed: nursing, case management Plan Activity: no restrictions Diet: low salt Follow up with: PRIMARY CAREMD [Primary Care Provider] - 3-5 Days
[2020-06-03 17:50] VITALS: BP 124/78
== END 2020-06-03 18:29 | disposition home or self-care (01) | DRG 776 ==
LOC: ED 14:50 → 4A 18:34
PROVIDERS: ADMIT Internal Medicine Geriatric Medicine; ATTEND Internal Medicine
DX: O99.43 Diseases of the circulatory system complicating the puerperium (principal); I50.31 Acute diastolic (congestive) heart failure; I42.9 Cardiomyopathy, unspecified; I16.1 Hypertensive emergency; O98.43 Viral hepatitis complicating the puerperium; B19.10 Unspecified viral hepatitis B without hepatic coma; Z20.822 Contact with and (suspected) exposure to COVID-19; O11.5 Pre-existing hypertension with pre-eclampsia, complicating the puerperium; I11.0 Hypertensive heart disease with heart failure; O99.215 Obesity complicating the puerperium; E66.01 Morbid (severe) obesity due to excess calories; Z79.899 Other long term (current) drug therapy
CPT/HCPCS: 36415; 71045; 80048; 80053; 81001; 83735; 83880; 85025; 85610; 93005; 93306; 96361; 96374; 96375; G0378; J1650; J1940; J2270; J2405; U0003